=== PATIENT | male | born 1975 | race Caucasian/White ===

== ENCOUNTER 2018-11-29 17:41 | Inpatient (IN) | payer OTHER ==
[~2018-11-29] VITALS: Ht 195.6 cm; Wt 100.8 kg
--- NOTE | 2018-11-29 18:01 | NUR ---
PT TO ROOM T2 FOR EVAL.
--- NOTE | 2018-11-29 18:20 | NUR ---
PT PRESENTS TO ED WITH C/O GENERALIZED WEAKNESS WITH INCREASED THIRST AND URINATION X 2 WKS. PT AAOX4 NO DISTRESS VSS GOWNED INST TO PROVIDE URINE SAMPLE SOON POSSIBLE.
[2018-11-29 19:04] LABS: FREE T4 0.75 ng/dL (0.76-1.46); FREE THYROXINE INDEX 2.3 ug/dL (1.4-4.5); T4(THYROXINE) 6.4 ug/dL (4.7-13.3)
--- NOTE | 2018-11-29 19:04 | NUR ---
REPORT GIVEN TO RADHA SANCHEZ RESUMING CARE OF PT AT THIS TIME
[2018-11-29 19:12] LABS: BASOPHIL % 0.2 % (0-2); PLATELET COUNT 272 x10^3mcL (130-400); RED CELL DISTRIBUTION WIDTH 13.1 % (11.5-14.5)
[2018-11-29 19:22] LABS: T3 TOTAL 0.6 ng/mL
[2018-11-29 19:34] LABS: ALBUMIN 4.1 g/dL (3.4-5.0); BILIRUBIN TOTAL 0.9 mg/dL (0.20-1.00); CALCIUM 9.5 mg/dL (8.5-10.1); CARBON DIOXIDE 11.5 mmol/L (21-32); CREATININE SERUM 1.4 mg/dL (0.7-1.3); TOTAL PROTEIN, SERUM 8.1 g/dL (6.4-8.2)
[2018-11-29 19:39] LABS: POTASSIUM SERUM 5.2 mmol/L (3.5-5.1)
--- NOTE | 2018-11-29 20:18 | NUR ---
PER MD CORTÉS BLOOD SUGAR GREATER THAN 350 SO EVEN THOUGH PROTOCOL SAYS START AT 5UNITS. MD CORTÉS STATES OKAY TO START AT 6.06 UNITS/HR
[2018-11-29 20:43] LABS: microscopic required? YES; urine erythrocyte TRACE (NEGATIVE)
--- NOTE | 2018-11-29 20:45 | NUR ---
REPORT GIVENT TO VIKTOR SANCHEZ
--- NOTE | 2018-11-29 20:50 | NUR ---
RECEIVED REPORT FROM QING SANCHEZ. AWAITING PT TRANSFER FROM ED.
[2018-11-29 20:52] LABS: AMPHETAMINE QUAL UR POSITIVE (See below)
--- NOTE | 2018-11-29 20:53 | NUR ---
PT WILL NOT LET ME LOOK AT HIS FEET. PT REFUSED TO TAKE HIS SOCKS OFF
--- NOTE | 2018-11-29 21:03 | NUR ---
PT ADMITTED TO ICU FROM ED VIA GURNEY ACCOMPANIED BY 2 NURSES. PT ABLE TO AMBULATE TO ICU BED WITH STEADY GATE AND HOOKED UP TO CLIENT SERVICES ADMINISTRATOR AND CONTINUOUS PULSE OX. VS UPON ADMISSION: T 98.1, HR 112, B/P 165/100 (121), RR 18, O2SAT 98%. PT IS AAOX4, SPEECH CLEAR. PT STATES NO PAIN AT THIS TIME. BREATHING E/U. LUNG SOUNDS CTA. NO N/V NOTED. PT HAS R AND L AC IV SITE, WNL. NS RUNNING AT 250CC/HR AND INSULIN GTT AT 9U/HR. BED IN LOW POSITION. CALL LIGHT WITHIN REACH. WILL CONTINUE TO MONITOR.
[2018-11-29 21:30] VITALS: BP 165/100
[2018-11-29 23:00] VITALS: BP 146/79
[2018-11-29 23:08] LABS: CALCIUM 8.3 mg/dL (8.5-10.1); CARBON DIOXIDE 15.3 mmol/L (21-32); CHLORIDE SERUM 102 mmol/L (98-107); CREATININE SERUM 0.9 mg/dL (0.7-1.3); GFR1 > 60 mL/min; GLUCOSE SERUM 319 mg/dL (74-106); PHOSPHOROUS 1.8 mg/dL (2.5-4.9); POTASSIUM SERUM 3.9 mmol/L (3.5-5.1); SODIUM SERUM 136 mmol/L (136-145)
--- NOTE | 2018-11-30 01:05 | NUR ---
BS 194. FLUIDS SWITCHED TO D5 1/2NS AT 150CC/HR AND INSULIN GTT DECREASED TO 5U/HR PER DKA PROTOCOL.
--- NOTE | 2018-11-30 02:32 | NUR ---
[employer] LIA[employer] OFFICER AT BEDSIDE FOR BLOOD DRAW.
[2018-11-30 03:25] VITALS: BP 128/74
[2018-11-30 03:59] LABS: CALCIUM 8.4 mg/dL (8.5-10.1); CARBON DIOXIDE 20.3 mmol/L (21-32); CHLORIDE SERUM 104 mmol/L (98-107); CREATININE SERUM 0.9 mg/dL (0.7-1.3); GFR1 > 60 mL/min; GLUCOSE SERUM 193 mg/dL (74-106); MAGNESIUM 2.2 mg/dL (1.8-2.4); PHOSPHOROUS 2.5 mg/dL (2.5-4.9); POTASSIUM SERUM 3.4 mmol/L (3.5-5.1); SODIUM SERUM 137 mmol/L (136-145)
[2018-11-30 07:01] LABS: CALCIUM 8.3 mg/dL (8.5-10.1); CARBON DIOXIDE 21.1 mmol/L (21-32); CHLORIDE SERUM 102 mmol/L (98-107); CREATININE SERUM 0.8 mg/dL (0.7-1.3); GFR1 > 60 mL/min; GLUCOSE SERUM 186 mg/dL (74-106); PHOSPHOROUS 2.5 mg/dL (2.5-4.9); POTASSIUM SERUM 3.9 mmol/L (3.5-5.1); SODIUM SERUM 134 mmol/L (136-145)
--- NOTE | 2018-11-30 07:15 | NUR ---
GAVE REPORT TO RAHUL SANCHEZ. ALL QUESTIONS AND CONCERNS ADDRESSED.
[2018-11-30 07:30] VITALS: BP 138/96
[2018-11-30 07:31] LABS: BASOPHIL % 0.7 % (0-2); PLATELET COUNT 202 x10^3mcL (130-400); RED CELL DISTRIBUTION WIDTH 13.3 % (11.5-14.5)
--- NOTE | 2018-11-30 07:42 | NUR ---
PAGED DR. LANGSTONED REGARDING BS <200 AND REQUEST FOR [facility] DIET. AWAITING RETURN CALL
[2018-11-30 08:26] VITALS: Ht 195.6 cm; Wt 100.8 kg
--- NOTE | 2018-11-30 08:36 | NUR ---
SPOKE WITH DR. INGRAM REGARDING BLOOD SUGARS. STATES HE WILL INPUT ORDERS.
--- NOTE | 2018-11-30 10:00 | NUR ---
IV INSULIN INCREASED TO 0.1 UNITS/KG/HR, POCT GLUCOSE 268.
--- NOTE | 2018-11-30 10:31 | NUR ---
DR. CORRAL, RESIDENTS, SENIOR PROCUREMENT SPECIALIST AND PRIMARY RN AT BEDSIDE FOR MORNING ROUNDS. PLAN OF CARE DISCUSSED WITH PT WHO IS A/O X 4. ALL IN AGREEMENT WITH PLAN OF CARE. WILL CONT TO MONITOR.
[2018-11-30 11:02] LABS: CALCIUM 8.9 mg/dL (8.5-10.1); CARBON DIOXIDE 18.1 mmol/L (21-32); CHLORIDE SERUM 102 mmol/L (98-107); CREATININE SERUM 0.8 mg/dL (0.7-1.3); GFR1 > 60 mL/min; GLUCOSE SERUM 308 mg/dL (74-106); PHOSPHOROUS 2.4 mg/dL (2.5-4.9); POTASSIUM SERUM 3.7 mmol/L (3.5-5.1); SODIUM SERUM 133 mmol/L (136-145)
[2018-11-30 12:00] VITALS: BP 136/77
--- NOTE | 2018-11-30 14:10 | NUR ---
PT TRANSFERRED TO CHAIR BEDSIDE. STEADY GAIT.
[2018-11-30 14:24] LABS: CALCIUM 8.1 mg/dL (8.5-10.1); CARBON DIOXIDE 22.9 mmol/L (21-32); CHLORIDE SERUM 101 mmol/L (98-107); CREATININE SERUM 0.8 mg/dL (0.7-1.3); GFR1 > 60 mL/min; MAGNESIUM 1.8 mg/dL (1.8-2.4); PHOSPHOROUS 1.9 mg/dL (2.5-4.9); POTASSIUM SERUM 3.5 mmol/L (3.5-5.1); SODIUM SERUM 134 mmol/L (136-145)
[2018-11-30 14:32] LABS: GLUCOSE SERUM 319 mg/dL (74-106)
[2018-11-30 16:00] VITALS: BP 140/91
[2018-11-30 18:18] LABS: CALCIUM 8.6 mg/dL (8.5-10.1); CARBON DIOXIDE 21.4 mmol/L (21-32); CHLORIDE SERUM 102 mmol/L (98-107); CREATININE SERUM 0.7 mg/dL (0.7-1.3); GFR1 > 60 mL/min; GLUCOSE SERUM 150 mg/dL (74-106); PHOSPHOROUS 1.7 mg/dL (2.5-4.9); POTASSIUM SERUM 3.2 mmol/L (3.5-5.1); SODIUM SERUM 136 mmol/L (136-145)
--- NOTE | 2018-11-30 18:48 | NUR ---
PT IN BED RESTING, EASILY AROUSABLE TO VERBAL STIMULI. AO X 4, SPEECH CLEAR AND APPROPRIATE. PT ON RA, NO SOB NO WHEEZING. ABDOMEN SOFT, FLAT. NO N/V/D. VOIDS TO URINAL. NO EDEMA NOTED. LAC, RAC PIV SITES WNL, DRESSINGS CDI. INSULIN INFUSING 0.05 UNITS/KG/HR, D5 HALF NS INFUSING AT 125 ML/HR. DINNER TRAY AT BEDSIDE. CALL LIGHT WITHIN REACH, BED IN LOWEST POSITION, WHEELS LOCKED, 2 SIDE RAILS UP. NO S/S ACUTE DISTRESS.
[2018-11-30 19:23] VITALS: BP 148/81
--- NOTE | 2018-11-30 19:30 | NUR ---
REC'D REPORT FROM HAY SANCHEZ TO ASSUME CARE. PT IS A/O X4, SPEECH CLEAR AND APPROPRIATE. PERRLA NOTED.EENT FREE OF DISCHARGE. RESPS E/U ON ROOM AIR. CHEST RISE EQUAL AND SYMMETRICAL. LUNG SOUNDS CTA. TECHNICIAN SUPPORT ASSOCIATION IN PLACE SHOWING NSR. BP 148/81 MAP 109, HR 91. CHEST WALL STABLE. DENIES ANY CP, SYNCOPE, OR DIZZINESS.PULSES PALPABLE X4. CAP REFILL < 3 SECS. NO EDEMA NOTED. IV TO LAC AND RAC G 20, INTACT AND PATENT. IVF D5 1/2 NS INFUSING @ 100ML/HR. INSULIN GTT INFUSING @ 0.05 UNITS/KG/HR. ACTIVE ROM X4. AMBULATORY WITH STEADY GAIT. ABLE TO REPOSITION SELF INDEPENDENTLY. CCHO DIET WITH GOOD APPETITE. ABD FLAT, SOFT NONTENDER TO TOUCH. BOWEL SOUNDS ACTIVE. DENIES ANY N/V/D. VOIDS FREELY WITH URINAL. DENIES ANY URINARY SYMPTOMS. SKIN INTACT. ALL NEEDS MET AT THIS TIME. CALL LIGHT WITHIN REACH. WILL CONTINUE TO MONITOR.
--- NOTE | 2018-11-30 21:14 | NUR ---
BS 268, IVF TITRATED TO 40ML/HR.
--- NOTE | 2018-11-30 21:14 | NUR ---
BS 343, IVF TITRATED TO 50ML/HR.
[2018-11-30 23:08] LABS: CALCIUM 8.5 mg/dL (8.5-10.1); CARBON DIOXIDE 26.9 mmol/L (21-32); CHLORIDE SERUM 102 mmol/L (98-107); CREATININE SERUM 0.8 mg/dL (0.7-1.3); GFR1 > 60 mL/min; GLUCOSE SERUM 261 mg/dL (74-106); MAGNESIUM 1.9 mg/dL (1.8-2.4); PHOSPHOROUS 2.1 mg/dL (2.5-4.9); POTASSIUM SERUM 3.5 mmol/L (3.5-5.1); SODIUM SERUM 135 mmol/L (136-145)
[2018-11-30 23:15] VITALS: BP 151/80
--- NOTE | 2018-12-01 00:48 | NUR ---
BS 232, IVF TITRATED TO 30 ML/HR.
--- NOTE | 2018-12-01 02:37 | NUR ---
BS 148, IVF TITRATED TO 50ML/HR.
[2018-12-01 02:44] LABS: CALCIUM 8.8 mg/dL (8.5-10.1); CARBON DIOXIDE 24.9 mmol/L (21-32); CHLORIDE SERUM 101 mmol/L (98-107); CREATININE SERUM 0.7 mg/dL (0.7-1.3); GFR1 > 60 mL/min; GLUCOSE SERUM 210 mg/dL (74-106); MAGNESIUM 2.1 mg/dL (1.8-2.4); PHOSPHOROUS 2.4 mg/dL (2.5-4.9); POTASSIUM SERUM 3.1 mmol/L (3.5-5.1); SODIUM SERUM 135 mmol/L (136-145)
--- NOTE | 2018-12-01 02:50 | NUR ---
ANION GAP CLOSED X2, DR OAKLEY MADE AWARE.
[2018-12-01 03:08] VITALS: BP 148/100
--- NOTE | 2018-12-01 04:39 | NUR ---
REPORTED K+ LEVEL 3.[address] COLLINS, NO NEW ORDERS GIVEN.
--- NOTE | 2018-12-01 07:00 | NUR ---
RECIEVED REPORT FROM VIK SANCHEZ. ALL QUESTIONS ANSWERED AND ADDRESSED. WILL RESUME CARE
[2018-12-01 07:18] VITALS: BP 152/96
[2018-12-01 07:50] LABS: BASOPHIL % 0.5 % (0-2); PLATELET COUNT 198 x10^3mcL (130-400); RED CELL DISTRIBUTION WIDTH 13.7 % (11.5-14.5)
--- NOTE | 2018-12-01 08:07 | NUR ---
GIVEN REPORT TO KELLY SANCHEZ. ALL QUESTIONS ANSWERED AND ADDRESSED. TELE BOX #1. WILL BE TRANSFERRING PT TO [facility] BED 222B.
--- NOTE | 2018-12-01 08:40 | NUR ---
RECEIVED PATIENT FROM ICU VIA HWEELCHAIR ACCOMPANIED BY ICU NURSE. PATIENT IS AWAKE, ALERT AND ORIENTED. AMBULATES WELL FROM WHEELCHAIR TO BED. ON ROOM AIR, RESP E/U. IV NOTED TO RAC #20 WITH KCL INFUSING WELL ORDERED, NO S/S ERYTHEMA AT SITE. PATIENT DENIES PAIN AND DISCOMFORT. PATIENT ORIENTED TO ROOM. CALL LIGHT PLACED WITHIN EASY REACH. WILL CONTINUE PLAN OF CARE.
--- NOTE | 2018-12-01 08:45 | NUR ---
BROUGHT PT TO TELE BED 220B VIA WHEELCHAIR WITHOUT ANY COMPLICATIONS. KELLY SANCHEZ AND CARRILLO SANCHEZ AT BEDSIDE CONTINUING CARE OF PT.
--- NOTE | 2018-12-01 08:55 | NUR ---
PATIENT ARRIVED FROM ICU ACCOMPANIED BY RN. PATIENT AMBULATED TO BED WITHOUT ASSIT. IV PRESENT TO LEFT AC. NS WITH KRIDER FLOWING. PATIENT A/0 X4 COMPLIANT WITH CARE, ANXIOUS TO BE DISCHARGED HOME. NO COMPLAINTS A TTHIS TIME. CALL LIGHT WITHIN REACH
[2018-12-01 09:01] LABS: CALCIUM 8.4 mg/dL (8.5-10.1); CARBON DIOXIDE 24.7 mmol/L (21-32); CHLORIDE SERUM 102 mmol/L (98-107); CREATININE SERUM 0.7 mg/dL (0.7-1.3); GFR1 > 60 mL/min; GLUCOSE SERUM 270 mg/dL (74-106); MAGNESIUM 1.9 mg/dL (1.8-2.4); PHOSPHOROUS 2.9 mg/dL (2.5-4.9); POTASSIUM SERUM 3.4 mmol/L (3.5-5.1); SODIUM SERUM 135 mmol/L (136-145)
--- NOTE | 2018-12-01 11:00 | NUR ---
OBSERVED PATIENT. DOES NOT SEE IN ANY OBVIOUS DISTRESS. HR 110 PER MONITOR, RESP OBSERVED AT 17/M. FAMILY AT BEDSIDE/
[2018-12-01 12:15] VITALS: BP 144/94
--- NOTE | 2018-12-01 12:31 | NUR ---
BG RESULT WAS 309, INSULIN 12 UNITS ADMINISTERED SQ PER SLIDING SCALE. INSTRUCTED PATIENT ON HOW TO SELF CHECK BLOOD SUGAR. THIS WAS PATIENTS VERY FIRST TIME CHECKING HIS OWN SUGAR. ANSWERED QUESTIONS THAT AROSE. SHOWED PATIENT HOW TO SELF ADMINISTER INSULIN, NO OPORTUNITY FOR PATIENT TO PERFORM INSULIN SQ. PATIENT VERY RECEPTIVE OF TEACHING AND DESIRES TO KNOW MORE. PATIENT LUNCH TRAY NOW AT BEDSIDE. [PATIENT SITTING UP TO EAT. CALL LIGHT WITHIN REACH
--- NOTE | 2018-12-01 14:12 | NUR ---
PATIENT SITTING UP AWAKE TALKING WITH FAMILY MEMBERS AT BEDSIDE. NO COMPLAINTS OF PAIN OR DISCOMFORT. ANSWERED PATIENT QUESTIONS AND UPDATED ABOUT PLAN OF CARE. CALL LIGHT WITHIN REACH
[2018-12-01] MEDS ORDERED: LANTUS SOLOS100 U/M1 SQ (14:31)
[2018-12-01] MEDS ORDERED: METFORMIN500 M1 PO (14:33)
[2018-12-01 15:00] VITALS: BP 149/90
[2018-12-01 15:03] VITALS: BP 149/90
--- NOTE | 2018-12-01 16:33 | NUR ---
PATIENT DISCHARGE COMPLETED. INSTRUCTED PATIENT ABOUT NEW MEDICATIONS AND HIS NEW DIAGNOSIS. TAUGHT PATIENT HOW TO DRAW UP INSULIN WELL HAD HIM TEACH BACK THE INFORMATION TO ME. PATIENT RECEIVED NEW PRESCRIPTIONS AND WAS INFORMED ABOUT APPOINTMENT TO FOLLOW UP WITH HIS CARE. INSTRUCTED PATIENT THAT IF HE HAD ANY QUESTIONS AFTER HE LEAVES THE HOPITAL HE CAN CALL THE HOSPITAL AND ASK TO SPEAK WITH CASE MANAGEMENT. IV REMOVED, ATH IN TACT, TELE MONITOR #1 REMOVED AND GIVEN BACK TO [facility]. PATIENT ESCORTED OFF FLOOR WITH ALL BELONGINGS BY RN.
== END 2018-12-01 16:30 | disposition home or self-care (01) | DRG 420 ==
LOC: ED 17:41 → IC 20:08 → DU 20:59 → IC 22:16 → MU 12-01 08:48 → DU 12-01 09:55
PROVIDERS: Emergency Medicine; ADMIT Internal Medicine
DX: E11.10 Type 2 diabetes mellitus with ketoacidosis without coma (principal); N17.0 Acute kidney failure with tubular necrosis; E87.0 Hyperosmolality and hypernatremia; E87.5 Hyperkalemia; I10 Essential (primary) hypertension; F19.10 Other psychoactive substance abuse, uncomplicated; E11.65 Type 2 diabetes mellitus with hyperglycemia; Z83.3 Family history of diabetes mellitus
CPT/HCPCS: 36600; 82962; 84439; G0378; J1815; J3480; J7030